=== PATIENT | male | born 1970 | race Hispanic/Latino ===

== ENCOUNTER 2024-10-16 13:02 | Emergency (ER) | payer SELFPAY ==
[~2024-10-16] VITALS: Ht 170.2 cm; Wt 81.6 kg
[2024-10-16 13:26] VITALS: TEMP 98.9
[2024-10-16 14:08] LABS: BASOPHILS % 0.3 % (0.0-1.0); EOSINOPHILS % 0.3 % (0.0-6.0); HEMATOCRIT 34.4 % (38.2-49.6); HEMOGLOBIN 11.9 g/dL (14.0-18.0); LYMPHOCYTES # (AUTO) 1.9 (1.0-3.2); LYMPHOCYTES % 15.1 % (18.0-39.1); MEAN CORPUSCULAR HEMOGLOBIN 31.4 pg (28-32); MEAN CORPUSCULAR HGB CONC 34.6 g/dL (31-35); MEAN CORPUSCULAR VOLUME 90.8 fL (81-99); MONOCYTES % 7.6 % (4.4-11.3); NEUTROPHILS # (AUTO) 9.7 (2.1-6.9); NEUTROPHILS % 76.1 % (38.7-80.0); PLATELET COUNT 197 x10e3/uL (140-360); RED BLOOD COUNT 3.79 x10e6/uL (4.3-5.7); RED CELL DISTRIBUTION WIDTH 12.5 % (11.7-14.4); WHITE BLOOD COUNT 12.69 x10e3/uL (4.8-10.8)
[2024-10-16 14:17] LABS: ALBUMIN 3.5 g/dL (3.5-5.0); ALBUMIN/GLOBULIN RATIO 0.9 (0.8-2.0); ANION GAP 14.5 mmol/L (8-16); BILIRUBIN,TOTAL 2.6 mg/dL (0.2-1.2); CALCIUM 9.3 mg/dL (8.4-10.2); CREATININE, SERUM 0.85 mg/dL (0.72-1.25); POTASSIUM 3.5 mmol/L (3.5-5.1); TOTAL PROTEIN 7.5 g/dL (6.5-8.1)
[2024-10-16] MEDS: SODIUM CHLORIDE 0.9% 1000ML 1,000 ML IV ONE (14:21)
[2024-10-16 14:25] LABS: INR 0.98; PROTHROMBIN TIME 13.9 seconds (11.9-14.5)
[2024-10-16 14:26] LABS: PARTIAL THROMBOPLASTIN TIME 34.8 seconds (23.8-35.5)
[2024-10-16] MEDS ORDERED: IOPAMIDOL 370 MG/ML 100 ML INFUS..BTL INJ ONE (14:42)
[2024-10-16 18:40] VITALS: PULSE 96; RESP 18
[2024-10-16] MEDS ORDERED: ONDANSETRON ODT4 MG PO (19:03)
[2024-10-16] MEDS ORDERED: HYDROCODON-ACE1 EA11 PO (19:03)
[2024-10-16] MEDS ORDERED: AMOX TR-K CLV1 EAC2 PO (19:03)
[2024-10-16 19:30] VITALS: BP 140/82; PULSE 91; RESP 20; TEMP 98.3; O2SAT 98
== END 2024-10-16 19:31 | disposition home or self-care (01) ==
LOC: ER 13:15
DX: R10.9 Unspecified abdominal pain (principal); K57.32 Diverticulitis of large intestine without perforation or abscess without bleeding; K75.2 Nonspecific reactive hepatitis; K76.0 Fatty (change of) liver, not elsewhere classified; R21 Rash and other nonspecific skin eruption; R16.0 Hepatomegaly, not elsewhere classified; F17.210 Nicotine dependence, cigarettes, uncomplicated
CPT/HCPCS: 36415; 71045; 74177; 76705; 80053; 83605; 85025; 85610; 85730; 87040; 93005; 99284; J2543; J7030; Q9967